=== PATIENT | female | born 1985 | race Caucasian/White ===

== ENCOUNTER 2017-11-09 05:55 | Inpatient (IN) | payer BC ==
[2017-11-08 09:24] VITALS: BMI 32.9
--- NOTE | 2017-11-08 13:24 | HP ---
ATTENDING PHYSICIAN: Dr. Aristides Huffman. HISTORY OF PRESENT ILLNESS: Ms. Casas is a 32-year-old female with prior L5 and S1 diskec tobias and fusion approximately 11 years ago, who was seen in our office recently for return of severe back and left leg pain in 02/2017. She has undergone multiple conservative treatments as well as med ications, therapy, injections without significant relief. At this point, she has exhausted all pain management strategies except spinal cord stimulator. She has had EMG and nerve conduction studies th at were unremarkable and did not reveal any other explanation for the symptoms. We have reviewed bot h a repeat lumbar MRI as well as CT myelography and there does not appear to be any clear-cut explana tion for her left S1 radiculopathy outside the L5-S1 level. Given any other explanation, Dr. Ирина topete recommended removal of the left-sided hardware in the thought that this would likely alleviate her current radiculitis. PAST MEDICAL HISTORY: The patient reports she is otherwise healthy. Denies any other medical proble ms. PAST SURGICAL HISTORY: L5-S1 diskectomy and fusion, November 2006. HOSPITALIZATIONS: See surgical history. FAMILY HISTORY: Noncontributory. SOCIAL HISTORY: The patient does not smoke, drink, or use any drugs. The patient denies any other p rior medications. Denies any medication allergies. REVIEW OF SYSTEMS: Per HPI. PHYSICAL EXAMINATION: CONSTITUTIONAL: Comfortable, in no acute distress. HEENT: Normocephalic, atraumatic. Eyes: PERRLA. Extraocular movements intact. ENT: Mucosa is pi nk and intact and moist. Patient has normal voice. CARDIAC: Regular rate and rhythm. PULMONARY: Patient is breathing comfortably, no evidence of dyspnea. MUSCULOSKELETAL: Good muscle tone in bilateral upper and lower extremities. No reflex asymmetry or focal motor weakness. Steady gait. ASSESSMENT AND PLAN: Acute left S1 radiculopathy, likely related to underlying hardware. Dr. Evin dyer discussed removal of hardware and revision of fusion of L5-S1. He discussed risks, benefits, and alternatives. Patient understands and wishes to proceed.
[2017-11-09] MEDS ORDERED: Thrombin 5000 UNITS/5 ML VIAL ONE (06:24)
[2017-11-09] MEDS ORDERED: Sodium Chloride 0.9% 10 ML ONE (06:24)
[2017-11-09 06:52] LABS: Hemoglobin 14.5 g/dL (12.0-16.0); Mean Corpuscular HGB CONC 32.8 g/dL (32.0-36.0); Mean Corpuscular Hemoglobin 28.3 pg (27.0-31.0); Mean Corpuscular Volume 86.4 fl (81.0-99.0); Mean Platelet Volume 7.6 fL (7.4-10.4); Platelet Count 178 thou/uL (130-400); RBC Distribution Width 12.3 % (11.5-14.5); Red Blood Cell (RBC) Count 5.14 mill/uL (4.20-5.40); White Blood Cell (WBC) Count 6.7 thou/uL (4.8-10.8)
[2017-11-09] MEDS ORDERED: CEFAZOLIN/Water 2 GM/20 ML SYRINGE ONE (07:08)
[2017-11-09] MEDS ORDERED: Midazolam HCl 2 mg/2 ml Vial ONE (07:14)
[2017-11-09] MEDS ORDERED: Fentanyl 250 MCG/5 ML VIAL ONE (07:14)
[2017-11-09 07:15] LABS: Anion Gap 10 mmol/L (10-20); BUN (Urea Nitrogen) 8 mg/dL (7.0-18.7); Calc. Creatinine Clearance 128 mL/min (70-130); Calcium 9.6 mg/dL (7.8-10.44); Carbon Dioxide 31 mmol/L (22-29); Chloride 103 mmol/L (98-107); Estimated GFR-MDRD 81; Glucose 91 mg/dL (70-105); Potassium 3.8 mmol/L (3.5-5.1); Sodium 140 mmol/L (136-145)
[2017-11-09] MEDS ORDERED: Fentanyl 100 MCG/2 ML VIAL ONE ×2 (09:04→09:53)
--- NOTE | 2017-11-09 10:09 | OP ---
DATE OF PROCEDURE: 11/09/2017 SURGEON: Aristides Huffman M.D. RESEARCH TECHNICIAN: Jimmie Desai PROCEDURE: Removal of hardware, left L5-S1, exploration spinal fusion, left L5-S1, posterolateral ar throdesis. Cancellous bone chips, local morselized autograft, BMP. PROCEDURE IN DETAIL: The patient was brought to the operating room and intubated. She was rolled in the prone position on gel-filled chest rolls. The previous incision was reopened and the prior hard love, left L5-S1 was identified. We removed the nuts and real and removed the left S1 screw, left L5 screw could not be removed as the screw had been stripped. It did require some significant bony rod yoshi to remove the left S1 screw as it was completely encased in bone. Once the screw had been remove d the bony fusion was explored and I was not convinced that it was entirely solid on the left side. Therefore, we did remove additional bone for the purpose of arthrodesis and once the surfaces of the posterolateral L5-S1 region were prepared appropriately, a combination of cancellous bone chips and s mall local morselized autograft, and BMP was laid over the left posterolateral recesses and surfaces at L5-S1 for the purpose of arthrodesis. Vancomycin powder was then applied and the wound was closed in anatomic layers.
[2017-11-09] MEDS ORDERED: Milk Of Magnesia 30 ML UDCUP PO PRN (11:15)
[2017-11-09] MEDS ORDERED: HYDROcodone/Acetaminophen 10/325 mg Tablet PO PRN (11:15)
[2017-11-09] MEDS ORDERED: Mag-Al 1200 mg/1200 mg/30 ML UDCUP PO PRN (11:15)
[2017-11-09] MEDS ORDERED: traMADol HCl 50 MG TAB PO PRN ×2 (11:15)
[2017-11-09] MEDS ORDERED: diphenhydrAMINE 50 MG/ML VIAL IVP PRN (11:15)
[2017-11-09] MEDS ORDERED: Promethazine HCl 12.5 MG SUPP PR PRN (11:15)
[2017-11-09] MEDS ORDERED: Promethazine HCl 25 MG/ML VIAL IM PRN (11:15)
[2017-11-09] MEDS ORDERED: diphenhydrAMINE 25 MG CAP PO PRN (11:15)
[2017-11-09] MEDS ORDERED: Promethazine 25 MG TAB PO PRN (11:15)
[2017-11-09] MEDS ORDERED: Morphine 4 MG/ML VIAL IV PRN ×2 (11:16→11:17)
[2017-11-09] MEDS ORDERED: Ondansetron HCl/PF 4 MG/2 ML Vial IM PRN (11:18)
[2017-11-09] MEDS ORDERED: Acetaminophen/Codeine 30-300mg Tablet PO PRN (11:23)
[2017-11-09] MEDS: tiZANidine HCl 4 MG TAB PO PRN ×2 (11:26→23:32)
[2017-11-09] MEDS: Sodium Chloride 0.9% 1,000 ML IV SCH (11:28)
[2017-11-09] MEDS ORDERED: Lidocaine 1% PF 5 ML VIAL ONE (14:34)
[2017-11-09] MEDS ORDERED: Ketorolac Tromethamine 30 MG/ML VIAL ONE (14:34)
[2017-11-09] MEDS ORDERED: Propofol 200 MG/20 ML VIAL ONE (14:34)
[2017-11-09] MEDS ORDERED: Dexamethasone 20 MG/5 ML VIAL ONE (14:34)
[2017-11-09] MEDS ORDERED: Ondansetron HCl/PF 4 MG/2 ML Vial ONE (14:34)
[2017-11-09] MEDS ORDERED: diphenhydrAMINE 50 MG/ML VIAL ONE (14:34)
[2017-11-09] MEDS ORDERED: Glycopyrrolate 0.2 MG/ML 5 ML SYRINGE ONE (14:34)
[2017-11-09] MEDS: Gabapentin 300 MG CAP PO SCH ×2 (15:05→20:06)
[2017-11-09] MEDS: HYDROcodone/Acetaminophen 10/325 mg Tablet PO PRN ×2 (15:57→20:03)
[2017-11-09] MEDS ORDERED: Venlafaxine HCl XR 150 MG CAP PO SCH (21:00)
[2017-11-10] MEDS: Sodium Chloride 0.9% 1,000 ML IV SCH (00:09)
[2017-11-10] MEDS: HYDROcodone/Acetaminophen 10/325 mg Tablet PO PRN (03:56)
[2017-11-10 04:11] VITALS: TEMP 98.2
[2017-11-10] MEDS: tiZANidine HCl 4 MG TAB PO PRN (05:58)
[2017-11-10] MEDS: Gabapentin 300 MG CAP PO SCH (09:09)
[2017-11-10 10:33] VITALS: BP 106/71
== END 2017-11-10 10:00 | disposition home or self-care (01) | DRG 497 ==
LOC: SURG A 05:55 → EDSTATUS 16:19
PROVIDERS: ADMIT Neurological Surgery; ATTEND Neurological Surgery
PROC: 0SW Lower Joints, Revision (ICD-10-PCS; principal; 2017-11-09)
PROC: 0SP30JZ Removal of Synthetic Substitute from Lumbosacral Joint, Open Approach (ICD-10-PCS; 2017-11-09)
DX: T84.84XA Pain due to internal orthopedic prosthetic devices, implants and grafts, initial encounter (principal); M54.17 Radiculopathy, lumbosacral region
CPT/HCPCS: 76001; 80048; 85027; 93005; 93010; A4216; C1713; J0131; J1100; J1200; J1885; J2001; J2250; J2405; J2704; J3010; J3370; J3490

== ENCOUNTER 2017-11-22 08:45 | Outpatient (CLI) | payer BC ==
--- NOTE | 2017-11-22 10:46 | RAD ---
TWO VIEWS OF THE LUMBAR SPINE: DATE: 11/22/17. COMPARISON: None. HISTORY: Lumbar fusion, low back pain. FINDINGS: Clips in the right upper quadrant suggest prior cholecystectomy. There is an incompletely imaged LAP band present. Five lumbar-type vertebral bodies are present. There is a right-sided S1 and L5 pedi christopher screw with a vertically oriented interlocking real. There is also a left-sided L5 pedicle screw. There are cutaneous carl posteriorly at the L5-S1 level. There is an intervertebral disk device at the L5-S1 level. No anterolisthesis or retrolisthesis. No acute osseous abnormality. IMPRESSION: Postoperative changes as above. POS: [facility]
== END 2017-11-22 08:46 | disposition home or self-care (01) ==
LOC: TBSIIMAG 08:45
PROVIDERS: ATTEND Neurological Surgery
DX: Z47.89 Encounter for other orthopedic aftercare (principal); Z98.890 Other specified postprocedural states; Z98.1 Arthrodesis status
CPT/HCPCS: 72100

== ENCOUNTER 2018-01-02 15:16 | Outpatient (CLI) | payer BC ==
--- NOTE | 2018-01-02 16:51 | RAD ---
LUMBAR SPINE 3 VIEWS: Date: 01/02/18 COMPARISON: 11/22/17. HISTORY: Reevaluate lumbar spine following surgery. FINDINGS: There is a left-sided pedicle screw at L5. Right-sided L5 and S1 pedicle screws are present with a ve rtically oriented interlocking real. There is an intervertebral disc device at the L5-S1 level. The po stoperative changes appear stable when compared to the 11/22/17 exam. There is an incompletely imaged lap band present. Clips in right upper quadrant suggest prior cholecystectomy. An IUD is present. Five lumbar-type vertebral bodies are present with normal height and alignment. IMPRESSION: Stable lumbar spine series. POS: [facility]
== END 2018-01-02 15:17 | disposition home or self-care (01) ==
LOC: TBSIIMAG 15:16
PROVIDERS: ATTEND Neurological Surgery
DX: M54.16 Radiculopathy, lumbar region (principal)
CPT/HCPCS: 72100

== ENCOUNTER 2018-10-09 10:13 | Day surgery (SDC) | payer BC ==
[2018-10-08 13:41] VITALS: BMI 34.7
[2018-10-09] MEDS ORDERED: Sodium Chloride 0.9% 100 ML ONE (10:54)
[2018-10-09] MEDS ORDERED: CEFAZOLIN 1 GM VIAL ONE (10:54)
[2018-10-09] MEDS ORDERED: Bupivacaine HCl 0.5%/Epinephrine 1:200,000/PF 30 ml Vial ONE ×2 (12:29→13:23)
[2018-10-09] MEDS ORDERED: Fentanyl 100 MCG/2 ML VIAL ONE ×2 (12:30→14:58)
[2018-10-09] MEDS ORDERED: Midazolam HCl 2 mg/2 ml Vial ONE (12:30)
[2018-10-09] MEDS ORDERED: Propofol 1,000 MG/100 ML VIAL IV ONE (12:30)
[2018-10-09] MEDS ORDERED: PROPOFOL 200 MG/20 ML VIAL ONE (12:41)
[2018-10-09] MEDS ORDERED: PROPOFOL 20 ML ONE (14:09)
[2018-10-09] MEDS ORDERED: HYDROcodone/Acetaminophen 10/325 mg Tablet ONE (15:31)
--- NOTE | 2018-10-09 15:52 | RAD ---
THORACIC SPINE ONE VIEW: History: Dorsal column stimulator placement, pain pump. FINDINGS: Single AP portable fluoroscopic spot image demonstrates dorsal column stimulator lead in place which appears to extend up to T8. IMPRESSION: Dorsal column stimulator lead extending up to what appears to be T8. POS: [facility]
--- NOTE | 2018-10-09 21:26 | OP ---
DATE OF PROCEDURE: 10/09/2018 BLEACH PLANT OPERATOR: None. POSTOPERATIVE DIAGNOSES: 1. Post-laminectomy syndrome. 2. Chronic pain syndrome. 3. Lumbar radiculopathy. PROCEDURES PERFORMED: 1. Spinal cord stimulator generator implant. 2. Spinal cord stimulator lead implant x2. 3. Fluoroscopy for programing. ESTIMATED BLOOD LOSS: 5 mL. DESCRIPTION OF PROCEDURE: The patient was taken to the procedure room and placed prone on the procedure room table. A time-out was performed. We prepped the back with ChloraPrep and sterile drapes were applied. Using fluoroscopy, we located the interspace of T12-L1. We anesthetized the skin with 0.5% Marcaine with epinephrine and made an incision and blunt dissected this down to fascia. We then used a 14-gauge supplied Touhy needle in a paramedian technique to engage in the ligament of T12-L1. We used loss of resistance to air to achieve access to the epidural space. There was negative aspiration for heme or CSF. We then threaded an 8-contact lead up the midline dorsal epidural space to the top of T8 on midline. We then inserted a contralateral lead using the exact same technique on the other side. We threaded this lead to the left of midline. We performed testing with the patient awake and the patient noted paresthesia in all pain areas. We then took the needles out taking care not to remove the leads. We threaded an anchoring device over the leads and embedded this into the fascia. We clicked it to lock it down. We then used 2-0 silk suture x2 to anchor the anchoring device to the fascial layer. We tugged down this and there was no movement under continuous fluoroscopy of leads. We created a tension-relief loop with 2-0 silk suture x2. We then turned our attention to the pocket. We anesthetized the skin in the right upper buttock. I used a scalpel to make an incision and blunt dissected this down to Marilee's fascia. I then blunt dissected laterally to create a pocket lateral to this. A tunneling device was used to make a tunnel between the two incisions. The leads were threaded through this tunneling device and brought to the battery pocket. These were connected to the battery and torqued down with the torque wrench to secure them. Impedances were checked, which were all good. We then tucked the battery into the pocket, lateral to the incision. We used 2-0 Vicryl suture to close the pocket. We then used 2-0 Vicryl suture in a simple interrupted fashion to approximate both fascial layers. We then approximated the skin layer using a subcuticular stitch of 3-0 Monocryl. We used Dermabond over this 4 x 4s with tape after the stride. The patient was taken to the recovery under stable condition without any apparent complications noted at this time. Job ID: [id number]
== END 2018-10-09 16:15 | disposition home or self-care (01) ==
LOC: SDC 10:13
PROVIDERS: ATTEND Specialist
PROC: 00HU3MZ Insertion of Neurostimulator Lead into Spinal Canal, Percutaneous Approach (ICD-10-PCS; principal; 2018-10-09)
PROC: 0JH70DZ Insertion of Multiple Array Stimulator Generator into Back Subcutaneous Tissue and Fascia, Open Approach (ICD-10-PCS; principal; 2018-10-09)
DX: M96.1 Postlaminectomy syndrome, not elsewhere classified (principal); G89.4 Chronic pain syndrome; M51.16 Intervertebral disc disorders with radiculopathy, lumbar region; M43.16 Spondylolisthesis, lumbar region; Z79.891 Long term (current) use of opiate analgesic; Z79.899 Other long term (current) drug therapy; Z98.1 Arthrodesis status
CPT/HCPCS: 72020; 76000; C1767; J0670; J0690; J2250; J2704; J3010; J7050

== ENCOUNTER 2020-09-15 11:45 | Outpatient (CLI) | payer BC ==
[~2020-09-15 11:45] MED LIST: Magnevist 469MG/ML 20 ML VIAL ONE
--- NOTE | 2020-09-15 14:24 | MRI ---
MRI LUMBAR SPINE WITH AND WITHOUT CONTRAST: 09/15/20 INDICATIONS: Low back pain, post laminectomy syndrome. Comparison made to the lumbar MRI of 01/24/18. Lumbar films of 01/02/18. FINDINGS: The lumbar vertebrae maintain normal height and alignment. There is loss of disc space at L5-S1. Post operative changes at L5-S1 are noted. Posterior laminectomy change. There are pedicle screws on the r ight at L4 and L5 and there is a pedicle screw on the left at L5. There is no residual or recurrent d isc bulge or protrusion at L5-S1. No evidence of central canal or foraminal stenosis. The nerve root sleeve cyst at this level described previously are again noted. Disc spaces above L5 show normal height and exhibit normal hydration and T2 signal. No disc bulge or disc protrusion seen at any of the other lumbar levels. Mild facet hypertrophy at L4-5 is present and this results in mild central canal stenosis. Mild facet arthrosis at L3-4 without central canal stenosis. The lumbar findings do not appear significantly changed from the MRI of 01/24/18. IMPRESSION: Postoperative changes at L5-S1. Mild central canal stenosis at L4-5 as described above. POS: [facility]
== END 2020-09-15 11:46 | disposition home or self-care (01) ==
LOC: MRI 11:45
PROVIDERS: ATTEND Specialist
DX: M96.1 Postlaminectomy syndrome, not elsewhere classified (principal); M51.16 Intervertebral disc disorders with radiculopathy, lumbar region; M48.061 Spinal stenosis, lumbar region without neurogenic claudication; Z98.890 Other specified postprocedural states
CPT/HCPCS: 72158; A9579

== ENCOUNTER 2021-11-29 11:00 | Day surgery (SDC) | payer BC ==
[2021-11-24 13:23] VITALS: BMI 31.5
[2021-11-29] MEDS ORDERED: Midazolam HCl 2 mg/2 ml Vial ONE ×2 (12:21→12:22)
[2021-11-29] MEDS ORDERED: Fentanyl 250 MCG/5 ML VIAL ONE (12:21)
== END 2021-11-29 13:50 | disposition home or self-care (01) ==
LOC: SDC/OP 11:00
PROVIDERS: ATTEND Nurse Practitioner Family
DX: M96.1 Postlaminectomy syndrome, not elsewhere classified (principal); M48.061 Spinal stenosis, lumbar region without neurogenic claudication; M46.1 Sacroiliitis, not elsewhere classified; M51.16 Intervertebral disc disorders with radiculopathy, lumbar region; M43.16 Spondylolisthesis, lumbar region; Z79.891 Long term (current) use of opiate analgesic; Z79.899 Other long term (current) drug therapy; Z96.82 Presence of neurostimulator; Z98.1 Arthrodesis status; Z98.84 Bariatric surgery status
CPT/HCPCS: 72131; J2250; J3010

== ENCOUNTER 2022-04-12 12:06 | Outpatient (CLI) | payer BC | END 2022-04-12 12:07 | disposition home or self-care (01) | LOC: SCSMRI 12:06 | PROVIDERS: ATTEND Nurse Practitioner Family | DX: M96.1 Postlaminectomy syndrome, not elsewhere classified (principal); M47.816 Spondylosis without myelopathy or radiculopathy, lumbar region; Z98.890 Other specified postprocedural states | CPT/HCPCS: 72158 ==

== ENCOUNTER 2023-09-28 09:58 | Outpatient (CLI) | payer BC | END 2023-09-28 09:59 | disposition home or self-care (01) | LOC: SCSMRI 09:58 | PROVIDERS: ATTEND Specialist | DX: M96.1 Postlaminectomy syndrome, not elsewhere classified (principal); M47.816 Spondylosis without myelopathy or radiculopathy, lumbar region; M47.817 Spondylosis without myelopathy or radiculopathy, lumbosacral region; Z98.1 Arthrodesis status | CPT/HCPCS: 72148 ==